=== PATIENT | female | born 1995 | race Caucasian/White ===

== ENCOUNTER 2021-04-07 15:48 | Emergency (ER) | payer BC ==
[~2021-04-07] VITALS: Ht 162.6 cm; Wt 95.4 kg
[2021-04-07] MEDS ORDERED: NS 1,000 ML IV ONE (16:50)
[2021-04-07 17:28] LABS: BASO % 0.3 % (0.0-1.0); EOS % 0.3 % (0.0-3.0); HEMATOCRIT 40.3 % (36.0-47.0); HEMOGLOBIN 14.2 g/dl (12.0-15.5); LYMPH # 1.8 10^3/uL (1.5-5.0); MEAN CORPUSCULAR HEMOGLOBIN 29.9 pg (27.0-33.0); MEAN CORPUSCULAR HGB CONC 35.2 g/dl (32.0-36.5); MEAN CORPUSCULAR VOLUME 84.8 fl (80.0-96.0); MONO # 0.6 10^3/uL (0.0-0.8); MONO % 5.7 % (2.0-8.0); NEUTROPHILS # 8.5 10^3/uL (1.5-8.5); NEUTROPHILS % 77.3 % (36.0-66.0); PLATELET COUNT, AUTOMATED 372 10^3/uL (150-450); RED BLOOD COUNT 4.75 10^6/uL (4.00-5.40)
[2021-04-07 17:56] LABS: BLOOD UREA NITROGEN 7 MG/DL (7-18); CALCIUM LEVEL 9.2 MG/DL (8.5-10.1); CARBON DIOXIDE LEVEL 28 MEQ/L (21-32); CHLORIDE LEVEL 102 MEQ/L (98-107); CREATININE FOR GFR 0.76 MG/DL (0.55-1.30); GLOMERULAR FILTRATION RATE > 60.0 (>60); GLUCOSE, FASTING 98 MG/DL (70-100); HCG, SERUM QUANTITATIVE < 1.0 MIU/ML; POTASSIUM SERUM 3.6 MEQ/L (3.5-5.1); SODIUM LEVEL 138 MEQ/L (136-145)
--- NOTE | 2021-04-07 19:11 | REP ---
INDICATION: heavy vaginal bleeding. COMPARISON: None. TECHNIQUE: Transabdominal and transvaginal scanning were performed. FINDINGS: Uterine dimensions are normal at 11.5 x 4.2 x 5.7 cm. Endometrial echo is 0.7 cm thick and centrally placed. No free fluid is seen in the cul-de-sac. Visualized bladder page are smooth. Uterine myometrium is somewhat heterogeneous. There are multiple nabothian cysts in the cervix. In addition, in the cervix transvaginal imaging demonstrates a heterogeneous hypoechoic solid mass lesion to the right side of the cervix measuring 2.3 x 2.0 x 2.3 cm. This is most likely a fibroid in the cervix although it is somewhat atypical location. The right ovary has dimensions of 3.8 x 1.4 x 2.7 cm. It's Doppler flow is normal with a resistive index of 0.54. The left ovary dimensions are normal as well at 2.8 x 1.8 x 1.7 cm. It's Doppler flow was normal with resistive index of 0.74. No ovarian abnormality is seen. No free fluid. IMPRESSION: Hypoechoic 2.3 cm mass in the cervix adjacent to the cervical endometrium. Benign fibroid versus other uterine lesion. Consider MRI scanning for further evaluation of this. Small nabothian cysts. Mildly enlarged uterus. Otherwise negative.. <Electronically signed by [place] > 04/07/21 [id number]
[2021-04-07 19:24] LABS: FREE T4 1.28 NG/DL (0.76-1.46)
[2021-04-07] MEDS ORDERED: medroxyPROGESTERone 5MG TABLET PO STA (20:54)
[2021-04-07] MEDS ORDERED: PROV10TA PO ×2 (20:56)
[2021-04-07 21:50] VITALS: BP 150/88
--- NOTE | 2021-04-07 23:30 | ROOPDOC ---
[facility] Report Of Operation Report of Operation DATE OF PROCEDURE: 04/07/21 SURGEON: Ivon Rosales M.D. CALENDER OPERATOR HELPER: Nathalie Velasquez CNM ( essential for tissue retractions, exposure and delivery of ) PROCEDURE: [Repeat] section PREOPERATIVE DIAGNOSIS: 1.[ History of prior section] 2. Active labor POSTOPERATIVE DIAGNOSIS: 1.[ History of prior section][Breech][Arrest of dilation] 2. Active labor ANESTHESIA: [Spinal] ESTIMATED BLOOD LOSS: 600 mL URINE OUTPUT: [100] mL INTRAVENOUS FLUIDS:[1200] mL of lactated Ringer's solution PREOPERATIVE ANTIBIOTICS:. [2 g of Ancef][and 500 azithromycin ] OPERATIVE FINDINGS: Liveborn [male] , Apgars 5 and 9. Weight 31-year-old 2 g or 7 lbs. 5 oz. SPECIMENS: Placenta DESCRIPTION OF PROCEDURE: After informed consent was obtained and written consent was reviewed. The patient was brought to the operating room[ where spinal anesthesia was placed]. She was then placed in the supine position with a left lateral tilt. Scott catheter was placed and to gravity. Patient was then prepped and draped in the normal sterile fashion. A timeout operating room was performed identifying the patient, procedure be performed as well as drug allergies. Anesthesia was tested and deemed to be adequate. Pfannenstiel skin incision was made and this was carried down to the underlying rectus fascia. The fascia was then scored and this incision was extended bilaterally. The fascia was then dissected off the underlying rectus muscle superiorly and inferiorly. The rectus muscles were then in the midline. The peritoneum is then entered. Vesicouterine peritoneum was then tented and excised and a bladder flap was created. Mobius retractor was then placed. Next, a curvilinear incision was then made in the lower uterine segment. [Amniotomy was performed, productive, clear fluid.] [The head was brought to the level of the incision atraumatically and delivered along the shoulders and corpus]. The cord was clamp ed x2. The was brought over to the warmer with a good cry. Placenta was drained and delivered grossly intact. The uterus was cleared of all clots and debris and the uterine incision was then closed using 0 Vicryl in a running locking fashion followed by a second layer of 0 Vicryl in a running nonlocking fashion for imbrication. The abdomen suctioned. Surgical sites reinspected and noted be hemostatic. The retractor was then removed. The anterior peritoneum was then reapproximated with 3-0 Vicryl. The rectus muscles were reapproximated 3-0 Vicryl. The fascia was then closed using 0 Vicryl in a running nonlocking fashion. The subcutaneous tissues was then irrigated and suctioned. Subcutaneous tissue was reapproximated using 3-0 Vicryl. Several subdermal stitch is placed using 3-0 Vicryl and the skin was closed with 4-0 Monocryl and subcuticular fashion. This incision was then cleaned and dried and was dressed. The patient was then taken to recovery in stable condition. All counts were correct. [The couple has decided to name the ] Jt Correa. My surgical scheduler [Abi Velasquez] played in an essential role during the operation. [She][He] assisted with tissue identification retraction, delivery of the , as well as wound closure. IVON ROSALES MD. April 07, 2021 23:30
== END 2021-04-07 21:52 | disposition home or self-care (01) ==
LOC: M ED 15:48
DX: N93.8 Other specified abnormal uterine and vaginal bleeding (principal); N88.8 Other specified noninflammatory disorders of cervix uteri; F41.9 Anxiety disorder, unspecified; E03.9 Hypothyroidism, unspecified; Z86.16 Personal history of COVID-19; Z88.0 Allergy status to penicillin; Z88.8 Allergy status to other drugs, medicaments and biological substances